=== PATIENT | female | born 1995 | race American Indian/Alaskan Native ===

== ENCOUNTER 2017-03-11 10:06 | Emergency (ER) | payer SELFPAY ==
[2017-03-11 10:18] VITALS: BMI 21.5
[2017-03-11 10:21] VITALS: BP 135/98; PULSE 91; TEMP 98; O2SAT 100
[2017-03-11] MEDS ORDERED: Albuterol-Ipratrop 3 mg / 0.5 (3 ml) UD INH STA (10:33)
--- NOTE | 2017-03-11 10:37 | ED PDOC ---
HPI: CCC, URI, Sore Throat Time Seen by Provider: 03/11/17 10:12 Chief Complaint (Nursing): Cough, Cold, Congestion Chief Complaint (Provider): Cough History Per: Patient History/Exam Limitations: no limitations Onset/Duration Of Symptoms: Days Current Symptoms Are (Timing): Still Present Additional Complaint(s): 21 year old female with a past medical history of asthma and sleep apnea who presents to the emergency department with a complaint of a cough since 03/09/2017. Associated with mild shortness of breath that began on Wednesday, and left ear ache that today, 03/11/2017. Reports she also feels chest pain with nose congestion and headache (had resolved since). States symptoms worsen at night while sleeping. Denies fever. Of note, patient is visiting and does not have nebulizer or asthma medication with her. Reports that she uses a Bipap while sleeping for Sleep Apnea but does not have an sleep test until she returns back home to get a new machine and equipment. Past Medical History Reviewed: Historical Data, Nursing Documentation, Vital Signs Vital Signs: Last Vital Signs Temp 98 F 03/11/17 10:21 Pulse 91 H 03/11/17 10:21 Resp BP 135/98 H 03/11/17 10:21 Pulse Ox 100 03/11/17 12:02 - Medical History PMH: Asthma, Sleep Apnea - Surgical History Surgical History: Tonsillectomy - Family History Family History: States: Unknown Family Hx - Social History Current smoker - smoking cessation education provided: No Alcohol: None Drugs: Denies - Home Medications Home Medications: Ambulatory Orders Medication Instructions Recorded Albuterol HFA [Ventolin HFA 90 2 puff IH [id number] #1 inh 03/11/17 mcg/actuation (8 g)] Prednisone 50 mg PO DAILY #4 tablet 03/11/17 - Allergies Allergies/Adverse Reactions: Allergies Allergy/AdvReac Type Severity Reaction Status Date / Time No Known Allergies Allergy Verified 03/11/17 10:16 Review of Systems ROS Statement: Except As Marked, All Systems Reviewed And Found Negative (As per HPI, otherwise negative) Constitutional: Negative for: Fever ENT: Positive for: Ear Pain (Left), Nose Congestion Cardiovascular: Positive for: Chest Pain Respiratory: Positive for: Cough, Shortness of Breath (Mild) Neurological: Positive for: Headache (Had resolved soon) Physical Exam - Reviewed Nursing Documentation Reviewed: Yes Vital Signs Reviewed: Yes - Physical Exam Appears: Positive for: Non-toxic, No Acute Distress Head Exam: Positive for: ATRAUMATIC, NORMAL INSPECTION, NORMOCEPHALIC Skin: Positive for: Normal Color, Warm, Dry ENT: Positive for: Normal ENT Inspection, Pharynx Is (Clear), TM Is/Are (Clear) . Negative for: Pharyngeal Erythema Cardiovascular/Chest: Positive for: Regular Rate, Rhythm. Negative for: Murmur Respiratory: Positive for: Normal Breath Sounds. Negative for: Accessory Muscle Use, Wheezing, Respiratory Distress Extremity: Positive for: Normal ROM. Negative for: Pedal Edema Lymphatic: Positive for: Normal Exam. Negative for: Adenopathy Neurologic/Psych: Positive for: Alert, Oriented (x3) - ECG O2 Sat by Pulse Oximetry: 100 (RA) Pulse Ox Interpretation: Normal Nebulizer Treatments/Peak Flow - Duonebs Number of Bronchodilator Doses given?: 1 - Steroid Treatment Steroid: Oral - Clinical Response Clinical Response: Improved Medical Decision Making Medical Decision Making: Time: 1033 Initial Impression: Bronchitis and upper respiratory infection (URI) differential include mild asthma exacerbation Initial Plan: --Duoneb 3 ml INH --Peak Flow Pre/Post TX --Prednisone 60 mg PO --Reevaluation Time: 1200 Upon provider reevaluation patient is feeling better, is medically stable, and requires no further treatment in the ED at this time. Patient will be discharged home with Rx for Ventolin HFA 90 mcg. Counseling was provided and all questions were answered regarding diagnosis and need for follow up with primary care doctor. There is agreement to discharge plan. Return if symptoms persist or worsen. Clinical Impression: Asthma exacerbation and upper respiratory infection (URI) Scribe~Attestation: Documented by Hanna Brown, acting as a scribe for Marcio Back MD. Provider Scribe~Attestation: All medical record entries made by the Scribe were at my direction and personally dictated by me. I have reviewed the chart and agree that the record accurately reflects my personal performance of the history, physical exam, medical decision making, and the department course for this patient. I have also personally directed, reviewed, and agree with the discharge instructions and disposition. Disposition - Clinical Impression Clinical Impression: Asthma exacerbation, URI, acute - Patient ED Disposition Is Patient to be Admitted: No Doctor Will See Patient In The: Office Counseled Patient/Family Regarding: Studies Performed, Diagnosis, Need For Followup - Disposition Referrals: [facility] [place] [facility] [Outside] Disposition: Routine/Home Disposition Time: 12:00 Condition: GOOD Additional Instructions: Take your medications as instructed. Use sudafed, mucinex and nasal saline spray over the counter. Follow up with your PCP in 2-3 days. Prescriptions: Albuterol HFA [Ventolin HFA 90 mcg/actuation (8 g)] 2 puff IH [id number] #1 inh Prednisone 50 mg PO DAILY #4 tablet Instructions: Asthma (ED)
[2017-03-11] MEDS ORDERED: Albuterol-Ipratrop 3 mg / 0.5 (3 ml) UD ONE (10:48)
== END 2017-03-11 12:12 | disposition home or self-care (01) ==
LOC: H.ER 10:06 → SUPCPDRO 10:06 → H.ER 12:12
DX: J45.901 Unspecified asthma with (acute) exacerbation (principal); J06.9 Acute upper respiratory infection, unspecified; G47.30 Sleep apnea, unspecified